=== PATIENT | female | born 1965 | race Caucasian/White ===

== ENCOUNTER → 2016-08-28 09:45 | Outpatient (CLI) | payer OTHER ==
[~2016-08-28 09:45] MED LIST: CALCIUM 500 + D1 TAB PO; EFFEXOR XR150 MG PO; ESTRACE1 MG PO; HYDROCODONE-APA1 TAB PO; LINZESS290 MCG PO; MAGNESIUM OXID250 MG PO; NAPROSYN500 MG PO; PRILOSEC20 MG PO; RITALIN5 MG PO; ROBAXIN500 MG PO; TOPAMAX100 MG PO
== END | disposition home or self-care (01) ==
LOC: D.US 09:45
DX: R10.9 Unspecified abdominal pain (principal)

== ENCOUNTER 2017-01-16 11:15 | Emergency (ER) | payer OTHER ==
[2017-01-16 14:32] LABS: BASOPHILS 0.4 % (0-2); EOSINOPHILS 0.6 % (0-7); HEMATOCRIT 39.1 % (36.0-48.0); HEMOGLOBIN 12.9 g/dL (12-16); LYMPHOCYTES 36.6 % (15-50); MEAN PLATELET VOLUME 9.5 fL (7.4-10.4); MONOCYTES 5.7 % (2-11); NEUTROPHILS 56.7 % (40-80); PLATELET COUNT 208 10x3/uL (130-400); RBC 4.16 10x6/uL (4.00-5.40); WBC 5.1 10x3/uL (4.8-10.8)
[2017-01-16 15:07] LABS: APPEARANCE HAZY (CLEAR); COLOR YELLOW (YELLOW)
[2017-01-16 15:08] LABS: BILIRUBIN NEGATIVE (NEGATIVE); GLUCOSE NEGATIVE (NEGATIVE); KETONE NEGATIVE (NEGATIVE); LEUKOCYTE ESTERASE NEGATIVE (NEGATIVE); NITRITE NEGATIVE (NEGATIVE); PROTEIN NEGATIVE (NEGATIVE); UROBILINOGEN NORMAL (NORMAL)
[2017-01-16 15:24] LABS: INR 1.08 (0.85-1.17); PROTIME 13.8 SECONDS (11.6-15.0)
[2017-01-16 15:29] LABS: ALBUMIN 3.6 g/dL (3.4-5.0); ALKALINE PHOSPHATASE 102 U/L (46-116); ALT (SGPT) 41 U/L (10-68); BILIRUBIN - TOTAL 0.27 mg/dL (0.2-1.3); CALC OSMOLALITY 283 mosm/kg (275-300); CALCIUM 8.3 mg/dL (8.5-10.1); CARBON DIOXIDE 27.7 mmol/L (21.0-32.0); CHLORIDE - SERUM 107 mmol/L (98-107); CREATININE - SERUM 0.8 mg/dL (0.6-1.3); GLUCOSE 86 mg/dL (74-106); POTASSIUM - SERUM 3.8 mmol/L (3.5-5.1); PROTEIN - SERUM 6.8 g/dL (6.4-8.2); SODIUM 142 mmol/L (136-145); UREA NITROGEN 18 mg/dL (7-18); eGFR NON AFRICAN AMERICAN 80 mL/min (90-120)
[2017-01-16 15:44] LABS: TROPONIN-I < 0.017 ng/mL (0.000-0.060)
== END 2017-01-16 16:45 | disposition home or self-care (01) ==
LOC: D.ER 11:15
PROVIDERS: Nurse Practitioner Family
DX: F07.81 Postconcussional syndrome (principal); S39.012A Strain of muscle, fascia and tendon of lower back, initial encounter; V89.2XXA Person injured in unspecified motor-vehicle accident, traffic, initial encounter; Y92.410 Unspecified street and highway as the place of occurrence of the external cause; M62.838 Other muscle spasm; R94.31 Abnormal electrocardiogram [ECG] [EKG]

== ENCOUNTER → 2017-11-07 15:12 | Outpatient (CLI) | payer OTHER | END | disposition home or self-care (01) | LOC: D.CT 15:12 | DX: R10.9 Unspecified abdominal pain (principal) ==